=== PATIENT | female | born 1980 | race Caucasian/White ===

== ENCOUNTER 2016-02-29 10:41 | Emergency (ER) | payer BC ==
[2016-02-29 11:28] VITALS: BP 110/72
== END 2016-02-29 20:17 | disposition left against medical advice (07) ==
LOC: ED 10:41
DX: R06.02 Shortness of breath (principal); Z53.21 Procedure and treatment not carried out due to patient leaving prior to being seen by health care provider
CPT/HCPCS: 99281

== ENCOUNTER 2016-03-09 18:18 | Emergency (ER) | payer BC ==
[2016-03-09] MEDS ORDERED: Ibuprofen TAB* 400 MG PO ONE (19:09)
[2016-03-09] MEDS ORDERED: methylPREDNISolone 125 MG* 2 ML VIAL IV ONE (19:39)
[2016-03-09] MEDS ORDERED: Albuterol/Ipratropium NEB.SOL* Albuterol 2.5 MG/Ipratropium 0.5 MG 3 ML INH ONE (19:39)
[2016-03-09 19:45] LABS: Hematocrit 42 % (35-47); Hemoglobin 14.6 g/dl (12.0-16.0); Mean Corpuscular HGB Conc 34 g/dl (31-36); Mean Corpuscular Hemoglobin 31 pg (27-31); Mean Corpuscular Volume 89 fL (80-97); Mean Platelet Volume 9 um3 (7.4-10.4); Red Blood Count 4.75 10^6/ul (4.0-5.4); Red Cell Distribution Width 14 % (10.5-15); White Blood Count 17.4 10^3/ul (3.5-10.8)
[2016-03-09 19:56] LABS: Albumin 3.5 g/dL (3.2-5.2); BUN/Creatinine Ratio 13.3 (8-20); Calcium 8.8 mg/dL (8.6-10.3); EGFR African American 113.1 (>60); EGFR Non-African American 87.9 (>60); Globulin 3.1 g/dL (2-4); Potassium 3.8 mmol/L (3.5-5.0); Total Bilirubin 0.5 mg/dL (0.2-1.0); Total Protein 6.6 g/dL (6.4-8.9)
[2016-03-09 19:57] LABS: Troponin I 0.01 ng/mL (<0.04)
--- NOTE | 2016-03-09 20:23 | RAD ---
Indication: Cough. 2 views of the chest demonstrate no mediastinal shift. Heart is of normal size and configuration. Lung sherman appear clear. IMPRESSION: No active cardiopulmonary disease is noted.
[2016-03-09 22:50] LABS: Urine Bilirubin Negative (Negative); Urine Glucose Negative (Negative); Urine Nitrite Negative (Negative)
[2016-03-09 23:35] VITALS: BP 93/60
--- NOTE | 2016-03-22 10:47 | ED ---
Micheal Parker Anna, scribed for Alex Ward MD on 03/09/16 at 2040 . Shortness of Breath - HPI Summary HPI Summary: Patient is a 35 y/o female coming to [facility] presenting with SOB that began weeks ago. She is also experiencing a cough, low-grade fever, body aches in her back and legs, and difficulty sleeping. The SOB is exacerbated by lying down. Denies fever. The symptoms have been worse in the last few days. She cannot sleep because of the coughing. Per triage notes, the patient describes the severity of the symptoms as 4/10. She [place] [facility] [facility] and diagnosed with PNA and prescribed Doxycycline then a round of Levaquin , which she just finished and did not alleviate the symptoms. She was admitted to doctor last year for PNA. She has a nebulizer at home. 15-20 days ago she was on steroids. Denies hx blood clots. Left leg swollen at baseline for months. - History of Current Complaint Chief Complaint: EDShortnessOfBreath Time Seen by Provider: 03/09/16 18:57 Hx Obtained From: Patient - Allergy/Home Medications Allergies/Adverse Reactions: Allergies Allergy/AdvReac Type Severity Reaction Status Date / Time Amoxicillin [From Augmentin] Allergy Intermediate Itching Verified 12/22/15 09: 02 Clavulanic Acid Allergy Intermediate Itching Verified 12/22/15 09:02 [From Augmentin] PMH/Surg Hx/FS Hx/Imm Hx Endocrine/Hematology History: Denies: Hx Diabetes Cardiovascular History: Denies: Hx Congestive Heart Failure, Hx Hypertension, Hx Pacemaker/ICD History: Denies: Hx Dialysis, Hx Renal Disease Sensory History: Denies: Hx Hearing Aid Psychiatric History: Denies: Hx Panic Disorder - Surgical History Surgery Procedure, Year, and Place: , tubal ligation Infectious Disease History: No Infectious Disease History: Denies: Traveled Outside the [place] in Last 30 Days - Family History Known Family History: Positive: Diabetes - Social History Lives: With Family Alcohol Use: Occasionally Substance Use Type: Reports: None Hx Tobacco Use: Yes Smoking Status (MU): Heavy Every Day Tobacco Smoker Type: Cigarettes Amount Used/How Often: Has not smoked in 1.5 months Review of Systems Positive: Fever, Other - Difficulty sleeping. Negative: Chills Negative: Erythema Negative: Sore Throat Negative: Chest Pain Positive: Shortness Of Breath, Cough Negative: Abdominal Pain, Vomiting, Nausea Negative: dysuria, hematuria Positive: Myalgia, Edema Negative: Rash Neurological: Other - Denies dizziness All Other Systems Reviewed And Are Negative: Yes Physical Exam - Summary Physical Exam Summary: Constitutional: Well-developed, Well-nourished, Alert. (-) Distressed Skin: Warm, Dry HENT: Normocephalic; Atraumatic Eyes: Conjunctiva normal Neck: Musculoskeletal ROM normal neck. (-) JVD, (-) Stridor, (-) Tracheal deviation Cardio: Rhythm regular, rate normal, Heart sounds normal; Intact distal pulses; The pedal pulses are 2+ and symmetric. Radial pulses are 2+ and symmetric. (-) Murmur Pulmonary/Chest wall: Effort normal. (-) Respiratory distress, Expiratory wheezes all sherman, (-) Rales Abd: Soft, (-) Tenderness, ~(-) Distension, (-) Guarding, (-) Rebound Musculoskeletal: (-) Edema Lymph: (-) Cervical adenopathy Neuro: Alert, Oriented x3 Psych: Mood and affect Normal Triage Information Reviewed: Yes Vital Signs On Initial Exam: Initial Vitals Temp Pulse Resp BP Pulse Ox 100.5 F 111 20 135/73 92 03/09/16 18:23 03/09/16 18:23 03/09/16 18:23 03/09/16 18:23 03/09/16 18:23 Vital Signs Reviewed: Yes Diagnostics - Vital Signs Vital Signs Temp Pulse Resp BP Pulse Ox 03/09/16 19:00 107 106/65 90 03/09/16 18:55 110 110/70 90 03/09/16 18:23 100.5 F 111 20 135/73 92 - Laboratory Lab Results: Lab Results 03/09/16 03/09/16 03/09/16 Range/Units 19:00 19:00 19:00 WBC 17.4 H (3.5-10.8) 10^3/ul RBC 4.75 (4.0-5.4) 10^6/ul Hgb 14.6 (12.0-16.0) g/dl Hct 42 (35-47) % MCV 89 (80-97) fL MCH 31 (27-31) pg MCHC 34 (31-36) g/dl RDW 14 (10.5-15) % Plt Count 249 (150-450) 10^3/ul MPV 9 (7.4-10.4) um3 Neut % (Auto) 86.7 H (38-83) % Lymph % (Auto) 7.5 L (25-47) % [place] % (Auto) 3.4 (1-9) % Eos % (Auto) 2.1 (0-6) % Baso % (Auto) 0.3 (0-2) % Absolute Neuts (auto) 15.1 H (1.5-7.7) 10^3/ul Absolute Lymphs (auto) 1.3 (1.0-4.8) 10^3/ul Absolute Monos (auto) 0.6 (0-0.8) 10^3/ul Absolute Eos (auto) 0.4 (0-0.6) 10^3/ul Absolute Basos (auto) 0 (0-0.2) 10^3/ul Absolute Nucleated RBC 0.01 10^3/ul Nucleated RBC % 0 D-Dimer, Quantitative 220 (Less Than 230) ng/mL Sodium 130 L (133-145) mmol/L Potassium 3.8 (3.5-5.0) mmol/L Chloride 102 (101-111) mmol/L Carbon Dioxide 22 (22-32) mmol/L Anion Gap 6 (2-11) mmol/L BUN 10 (6-24) mg/dL Creatinine 0.75 (0.51-0.95) mg/dL Est GFR ( Amer) 113.1 (>60) Est GFR (Non-Af Amer) 87.9 (>60) BUN/Creatinine Ratio 13.3 (8-20) Glucose 124 H (70-100) mg/dL Lactic Acid (0.5-2.0) mmol/L Calcium 8.8 (8.6-10.3) mg/dL Total Bilirubin 0.50 (0.2-1.0) mg/dL AST 14 (13-39) U/L ALT 10 (7-52) U/L Alkaline Phosphatase 48 (34-104) U/L Troponin I 0.01 (<0.04) ng/mL Total Protein 6.6 (6.4-8.9) g/dL Albumin 3.5 (3.2-5.2) g/dL Globulin 3.1 (2-4) g/dL Albumin/Globulin Ratio 1.1 (1-3) 03/09/16 Range/Units 19:00 WBC (3.5-10.8) 10^3/ul RBC (4.0-5.4) 10^6/ul Hgb (12.0-16.0) g/dl Hct (35-47) % MCV (80-97) fL MCH (27-31) pg MCHC (31-36) g/dl RDW (10.5-15) % Plt Count (150-450) 10^3/ul MPV (7.4-10.4) um3 Neut % (Auto) (38-83) % Lymph % (Auto) (25-47) % [place] % (Auto) (1-9) % Eos % (Auto) (0-6) % Baso % (Auto) (0-2) % Absolute Neuts (auto) (1.5-7.7) 10^3/ul Absolute Lymphs (auto) (1.0-4.8) 10^3/ul Absolute Monos (auto) (0-0.8) 10^3/ul Absolute Eos (auto) (0-0.6) 10^3/ul Absolute Basos (auto) (0-0.2) 10^3/ul Absolute Nucleated RBC 10^3/ul Nucleated RBC % D-Dimer, Quantitative (Less Than 230) ng/mL Sodium (133-145) mmol/L Potassium (3.5-5.0) mmol/L Chloride (101-111) mmol/L Carbon Dioxide (22-32) mmol/L Anion Gap (2-11) mmol/L BUN (6-24) mg/dL Creatinine (0.51-0.95) mg/dL Est GFR ( Amer) (>60) Est GFR (Non-Af Amer) (>60) BUN/Creatinine Ratio (8-20) Glucose (70-100) mg/dL Lactic Acid 0.7 (0.5-2.0) mmol/L Calcium (8.6-10.3) mg/dL Total Bilirubin (0.2-1.0) mg/dL AST (13-39) U/L ALT (7-52) U/L Alkaline Phosphatase (34-104) U/L Troponin I (<0.04) ng/mL Total Protein (6.4-8.9) g/dL Albumin (3.2-5.2) g/dL Globulin (2-4) g/dL Albumin/Globulin Ratio (1-3) Result Diagrams: 03/09/16 19:00 03/09/16 19:00 Lab Statement: Any lab studies that have been ordered have been reviewed, and results considered in the medical decision making process. - Radiology CXR Xray Interpretation: No Acute Changes Radiology Interpretation Completed By: Radiologist Course/Dx - Course Assessment/Plan: Patient is a 35 y/o female coming to [facility] presenting with SOB that began weeks ago. She is also experiencing a cough, low-grade fever, body aches in her back and legs, and difficulty sleeping. The SOB is exacerbated by lying down. Denies fever. The symptoms have been worse in the last few days. CXR was unremarkable. Flu test was negative. White blood cell count was 17.4. Patient will be discharged home with antibiotics. - Diagnoses Provider Diagnoses: Acute bronchitis, Flu-like symptoms Discharge - Discharge Plan Condition: Stable Disposition: HOME Prescriptions: Albuterol 2.5MG/3ML (0.083%)* [Ventolin 2.5 MG/3 ML NEB.PRASHANTH*] 2.5 mg INH Q4H # 60 neb.prashanth Methylprednisolone [Medrol Dosepak 4 MG*] 0 mg PO .SEE YASEMIN INSTRUCTION #1 packet Moxifloxacin TAB(NF) [Avelox TAB (NF)] 400 mg PO DAILY #7 tab Patient Education Materials: Methylprednisolone (By mouth), Moxifloxacin (By mouth), Acute Bronchitis (ED) Forms: *Work Release Referrals: Nimesh MENDENHALLP,Mattie [Primary Care Provider] - Additional Instructions: Return to the Emergency Department for any new or worsening symptoms. The documentation as recorded by the Micheal wilson Anna accurately reflects the service I personally performed and the decisions made by , Alex Ward MD.
== END 2016-03-09 23:33 | disposition home or self-care (01) ==
LOC: ED 18:18
DX: J20.9 Acute bronchitis, unspecified (principal); M79.1 Myalgia; R50.9 Fever, unspecified; F17.210 Nicotine dependence, cigarettes, uncomplicated; Z87.01 Personal history of pneumonia (recurrent); Z88.0 Allergy status to penicillin
CPT/HCPCS: 36415; 71020; 80053; 81003; 83605; 84484; 85025; 85379; 87040; 87502; 99283; A9270-GY; J2930

== ENCOUNTER 2016-10-19 11:11 | Emergency (ER) | payer BC ==
--- NOTE | 2016-10-19 12:53 | ED ---
HPI Chest Pain - HPI Summary HPI Summary: Patient presents to the ED with right sided chest pain described as a muscular ache over the right ribs. She states she has some SOB d/t not being able to take a deep breath d/t pain. She was seen at early this week for chest pain , cough and congestion and was dx with bronchitis and given abx. Today, she notes the cough and congestion symptoms have improved on abx, but the right sided chest pain remains. Pain is 8/10, worse with inspiration, better with rest. Described as a dull ache. Worse with cough. Not worse with position changes. She has never had pain like this before. Denies trauma to the area. Patient is a smoker, denies travel or OCP use. She does not have a history of anxiety and does not feel anxious. Hx of ashtma, other history is non- significant. She denies weakness, CANELA, neck pain or stiffness, visual disturbances or photophobia. She denies calf pain and no recent surgeries. Lives with family. - History of Current Complaint Chief Complaint: EDBackInjuryPain Time Seen by Provider: 10/19/16 11:24 Hx Obtained From: Patient Onset/Duration: Started Days Ago Timing: Constant Initial Severity: Moderate Current Severity: Moderate Pain Intensity: 10 Pain Scale Used: 0-10 Numeric Chest Pain Radiates: No Character: Dull/Aching Aggravating Factor(s): Nothing, Movement Alleviating Factor(s): Nothing Associated Signs and Symptoms: Positive: Shortness of Breath, Cough - Risk Factors Pulmonary Embolism Risk Factors: Smoking TAD Risk Factors: Negative AMI/ACS Risk Factors: Smoking - Allergy/Home Medications Allergies/Adverse Reactions: Allergies Allergy/AdvReac Type Severity Reaction Status Date / Time Amoxicillin [From Augmentin] Allergy Intermediate Itching Verified 03/09/16 23: 31 Clavulanic Acid Allergy Intermediate Itching Verified 03/09/16 23:31 [From Augmentin] PMH/Surg Hx/FS Hx/Imm Hx Previously Healthy: Yes Endocrine/Hematology History: Denies: Hx Diabetes Cardiovascular History: Denies: Hx Congestive Heart Failure, Hx Hypertension, Hx Pacemaker/ICD History: Denies: Hx Dialysis, Hx Renal Disease Sensory History: Denies: Hx Hearing Aid Psychiatric History: Denies: Hx Panic Disorder - Surgical History Surgery Procedure, Year, and Place: , tubal ligation Infectious Disease History: No Infectious Disease History: Denies: Traveled Outside the [place] in Last 30 Days - Family History Known Family History: Positive: Diabetes - Social History Occupation: Employed Full-time Lives: With Family Alcohol Use: Occasionally Hx Substance Use: No Substance Use Type: Reports: None Hx Tobacco Use: Yes Smoking Status (MU): Heavy Every Day Tobacco Smoker Type: Cigarettes Amount Used/How Often: Has not smoked in 1.5 months Review of Systems - ROS Summary Review of Systems Summary: Constitutional: The patient denies fever, CANELA. HEENT: Head: The patient denies headaches or dizziness. Eyes: The patient denies diplopia, blurry vision, eye pain, eye discharge, photophobia. Throat: The patient denies sore throats or hoarseness. Cardiovascular: The patient denies chest pain, palpitations, syncope, night cramps, or orthostasis. Respiratory: The patient endorses cough, SOB. Gastrointestinal: The patient denies odynophagia, dysphagia, hematemesis, melenemesis. Denies abdominal pain, but states he vomits almost daily since gastric bypass Muscles: The patient denies myalgia, strain or weakness. Joints: The patient denies arthralgia and/or arthritis. Neurologic: The patient denies headache, loss of consciousness, or seizure. Dermatologic: The patient denies hyperpigmentation, rash, or photosensitivity. Constitutional: Negative Negative: Fever, Chills, Fatigue Eyes: Negative Positive: Chest Pain Positive: Shortness Of Breath, Cough Gastrointestinal: Negative Negative: Abdominal Pain, Vomiting, Diarrhea, Nausea Genitourinary: Negative Positive: no symptoms reported, see HPI Positive: Arthralgia - right sided rib pain Skin: Negative Negative: Headache, Weakness Psychological: Normal All Other Systems Reviewed And Are Negative: Yes Physical Exam - Summary Physical Exam Summary: Appearance: WDW, comfortable, pleasant, alert Skin: Soft dry skin, no lesions. Nailbeds pink with no cyanosis or clubbing. No petechia noted. Eyes: AMBER, EOMI, Conjunctiva pink with no redness or exudates. Mouth: Dentition without lesions. Moist mucosa Neck: Full range of motion. Palpable thyroid. Trachea at midline. No lymphadenopathy. Pulm: Chest symmetrical expansion. No deformities on posterior chest wall. Lungs clear to auscultation and percussion, without adventitious sounds. ABD: Bowel sounds present, no guarding, hepatomegaly, non-distended, no CVA tenderness bilaterally, CV: No JVD. No deformities on anterior chest wall. exam not performed Musculoskeletal: Flexion and extension of neck limited d/t pain. Brudzynski and Kernig sign negative. No deformities noted. Pulses full and equal. Neuro: Motor strength is 5/5 in upper and lower extremities bilaterally. A&OX3 Psych: Logical, coherent Triage Information Reviewed: Yes Vital Signs On Initial Exam: Initial Vitals Temp Pulse Resp BP Pulse Ox 97.5 F 76 16 123/78 98 10/19/16 11:14 10/19/16 11:14 10/19/16 11:14 10/19/16 11:14 10/19/16 11:14 Vital Signs Reviewed: Yes Appearance: Positive: Well-Appearing, No Pain Distress, Well-Nourished Skin: Positive: Warm, Skin Color Reflects Adequate Perfusion Head/Face: Positive: Normal Head/Face Inspection Eyes: Positive: EOMI, AMBER, Conjunctiva Clear Neck: Positive: Supple, No Lymphadenopathy Respiratory/Lung Sounds: Positive: Clear to Auscultation, Breath Sounds Present Cardiovascular: Positive: RRR, Pulses are Symmetrical in both Upper and Lower Extremities Musculoskeletal: Positive: Normal, Strength/ROM Intact Neurological: Positive: Speech Normal Psychiatric: Positive: Normal AVPU Assessment: Alert Diagnostics - Vital Signs Vital Signs Temp Pulse Resp BP Pulse Ox 10/19/16 11:33 98.0 F 73 128/78 10/19/16 11:14 97.5 F 76 16 123/78 98 - Laboratory Lab Results: Lab Results 10/19/16 Range/Units 11:50 D-Dimer, Quantitative > 1050 H (Less Than 230) ng/mL Result Diagrams: 10/19/16 12:30 10/19/16 12:30 Lab Statement: Any lab studies that have been ordered have been reviewed, and results considered in the medical decision making process. Chest Pain Course/Dx - Course Course Of Treatment: Patient sent to rib xray and a d-dimer is drawn. D-dimer is 1050 and blood work and CTA then obtained to assess for PE. Wells score is 16.3% and is considered "moderate risk." Pain is 8/10, worse with inspiration, better with rest. Described as a dull ache. Worse with cough. Not worse with position changes. She has never had pain like this before. Denies trauma to the area. Patient is a smoker, denies travel or OCP use. She does not have a history of anxiety and does not feel anxious. Hx of ashtma, other history is non-significant. Rib series shows no fracture. 1. No CT of evidence of pulmonary embolism. 2. There are faint, mostly pleural-based scattered groundglass densities improved since. the July 19, 2014 CT examination of doubtful clinical significance. - Chest Pain Differential Diagnosis/HQI/PQRI: Chest Wall, Lower Respiratory Infection, Pulmonary Embolism - Diagnoses Provider Diagnoses: Costochondral chest pain Discharge - Discharge Plan Condition: Stable Disposition: HOME Patient Education Materials: Costochondritis (ED) Additional Instructions: 600mg three times daily IBUPROFEN Moist heat pack to the area Do not use ICE Rest Robitussin over the counter for cough As discussed, no blood clots found on exam
--- NOTE | 2016-10-19 13:30 | RAD ---
INDICATION: Pain overlying the right lateral ribs from coughing COMPARISON: None. TECHNIQUE: 5 views of the right ribs were obtained. FINDINGS: No fracture or significant focal osseous abnormality is seen. No pneumothorax is apparent. Limited views demonstrate grossly clear lungs. IMPRESSION: No radiographically apparent displaced rib fracture or pneumothorax. If the patient's symptoms persist, follow-up imaging is recommended.
[2016-10-19 13:37] LABS: Hematocrit 49 % (35-47); Hemoglobin 16.6 g/dl (12.0-16.0); Mean Corpuscular HGB Conc 34 g/dl (31-36); Mean Corpuscular Hemoglobin 31 pg (27-31); Mean Corpuscular Volume 91 fL (80-97); Mean Platelet Volume 8 um3 (7.4-10.4); Red Blood Count 5.39 10^6/ul (4.0-5.4); Red Cell Distribution Width 14 % (10.5-15)
[2016-10-19 13:49] LABS: Albumin 3.5 g/dL (3.2-5.2); BUN/Creatinine Ratio 21.9 (8-20); Calcium 9.1 mg/dL (8.6-10.3); EGFR Non-African American 90.2 (>60); Globulin 3.5 g/dL (2-4); Potassium 4.2 mmol/L (3.5-5.0); Total Bilirubin 0.5 mg/dL (0.2-1.0)
[2016-10-19] MEDS ORDERED: Iohexol 350* (CONTRAST) 500 ML MDV IV ONE (13:53)
[2016-10-19 14:12] LABS: Erythrocyte Sed Rate 14 mm/Hr (0-14)
--- NOTE | 2016-10-19 15:52 | RAD ---
INDICATION: Chest pain COMPARISON: Similar examination July 19, 2014 TECHNIQUE: Axial source images were acquired following the administration of 72 mL Omnipaque [address] angiographic technique. Coronal and sagittal reconstructed images were constructed and reviewed. FINDINGS: There there are no filling defects in the pulmonary arteries to indicate acute pulmonary embolic disease. The patchy infiltrate seen on the prior CT examinations have mostly resolved with only a faint pleural-based densities scattered on today's CT examination. The heart is normal in size. There is no evidence of pericardial effusion. There is no evidence of aortic aneurysm or dissection. There is no mediastinal, hilar, or axillary lymphadenopathy. The visualized osseous structures appear normal. Limited views of the upper abdomen show no abnormalities. IMPRESSION: 1. No CT of evidence of pulmonary embolism. 2. There are faint, mostly pleural-based scattered groundglass densities improved since the July 19, 2014 CT examination of doubtful clinical significance.
[2016-10-19 16:45] VITALS: BP 130/69
== END 2016-10-19 16:30 | disposition home or self-care (01) ==
LOC: ED 11:11
DX: R07.1 Chest pain on breathing (principal); R06.02 Shortness of breath; R05 Cough; F17.210 Nicotine dependence, cigarettes, uncomplicated
CPT/HCPCS: 36415; 71275; 80053; 85027; 85379; 85652; 93005; 99282; Q9967